=== PATIENT | female | born 1970 | race Caucasian/White ===

== ENCOUNTER 2018-02-16 15:01 | Day surgery (SDC) | payer OTHER ==
[2018-02-16] MEDS ORDERED: PROPOFOL 60 ML (16:44)
== END 2018-02-16 17:55 | disposition home or self-care (01) ==
LOC: GIL 15:01
DX: K29.70 Gastritis, unspecified, without bleeding (principal); K64.8 Other hemorrhoids; J45.909 Unspecified asthma, uncomplicated
CPT/HCPCS: 43239; 84703; 88305